=== PATIENT | female | born 1990 | race Caucasian/White ===

== ENCOUNTER 2020-11-18 16:48 | Outpatient (CLI) | payer BC, OTHER ==
[2020-11-18 20:47] LABS: BASOPHILS # (AUTO) 0.1 10^3/uL (0.0-0.1); BASOPHILS % (AUTO) 1.4 %; EOSINOPHILS # (AUTO) 0.3 10^3/uL (0.0-0.7); EOSINOPHILS % (AUTO) 4.4 %; HGB - HEMOGLOBIN 13.3 g/dL (12.0-16.0); LYMPHOCYTES # (AUTO) 1.8 10^3/uL (1.5-3.5); LYMPHOCYTES % (AUTO) 32.1 %; MEAN CORPUSCULAR HEMOGLOBIN 32.7 pg (27.0-31.0); MEAN PLATELET VOLUME 11.2 fL (7.9-10.8); MONOCYTES # (AUTO) 0.7 10^3/uL (0.0-1.0); MONOCYTES % (AUTO) 11.5 %; NEUTROPHILS # (AUTO) 2.9 10^3/uL (1.5-6.6); NEUTROPHILS % (AUTO) 50.2 %; PLT - PLATELET COUNT 273 10^3/uL (130-450); RED BLOOD COUNT 4.07 10^6/uL (4.20-5.40); RED CELL DISTRIBUTION WIDTH 12.2 % (12.0-15.0); WHITE BLOOD COUNT 5.7 x10^3/uL (4.8-10.8)
[2020-11-18 20:58] LABS: ALBUMIN/GLOBULIN RATIO 1.5 (1.0-2.2); BILIRUBIN,TOTAL 0.2 mg/dL (0.2-1.0); CALCIUM 9.1 mg/dL (8.5-10.3); CREATININE 0.8 mg/dL (0.4-1.0); TOTAL PROTEIN 6.7 g/dL (6.7-8.2)
== END 2020-11-18 23:59 | disposition home or self-care (01) ==
LOC: LAB.N 16:48
PROVIDERS: ATTEND Nurse Practitioner
DX: N93.8 Other specified abnormal uterine and vaginal bleeding (principal)
CPT/HCPCS: 36415; 80053; 85025

== ENCOUNTER 2022-02-17 09:33 | Outpatient (CLI) | payer OTHER ==
[2022-02-17 12:13] LABS: BASOPHILS # (AUTO) 0.1 10^3/uL (0.0-0.1); BASOPHILS % (AUTO) 1.2 %; EOSINOPHILS # (AUTO) 0.3 10^3/uL (0.0-0.7); EOSINOPHILS % (AUTO) 5.8 %; HCT - HEMATOCRIT 41.3 % (37.0-47.0); HGB - HEMOGLOBIN 13.8 g/dL (12.0-16.0); LYMPHOCYTES # (AUTO) 1.9 10^3/uL (1.5-3.5); LYMPHOCYTES % (AUTO) 38.1 %; MEAN CORPUSCULAR HEMOGLOBIN 33.5 pg (27.0-31.0); MEAN CORPUSCULAR HGB CONC 33.4 g/dL (32.0-36.0); MEAN CORPUSCULAR VOLUME 100.2 fL (81.0-99.0); MEAN PLATELET VOLUME 11.3 fL (7.9-10.8); MONOCYTES # (AUTO) 0.5 10^3/uL (0.0-1.0); MONOCYTES % (AUTO) 10.1 %; NEUTROPHILS # (AUTO) 2.2 10^3/uL (1.5-6.6); NEUTROPHILS % (AUTO) 44.6 %; PLT - PLATELET COUNT 241 10^3/uL (130-450); RED BLOOD COUNT 4.12 10^6/uL (4.20-5.40); WHITE BLOOD COUNT 4.9 x10^3/uL (4.8-10.8)
[2022-02-17 12:22] LABS: ESTIMATED AVERAGE GLUCOSE 97 mg/dL (70-100)
[2022-02-17 12:42] LABS: % IRON SATURATION 33 % (20-50); ALBUMIN 3.9 g/dL (3.2-5.5); ALBUMIN/GLOBULIN RATIO 1.3 (1.0-2.2); ALKALINE PHOSPHATASE 42 IU/L (42-121); ALT ALANINE AMINOTRANSFERASE 18 IU/L (10-60); AST ASPARTATE AMINOTRANSFERASE 22 IU/L (10-42); BILIRUBIN,TOTAL 0.7 mg/dL (0.2-1.0); BUN - BLOOD UREA NITROGEN 12 mg/dL (6-20); CARBON DIOXIDE - CO2 28 mmol/L (21-32); CHLORIDE 105 mmol/L (101-111); CHOL/HDL RATIO 2.4 (<4.4); CHOLESTEROL 160 mg/dL; CREATININE 0.8 mg/dL (0.4-1.0); GFR - MDRD 83 (>89); GLUCOSE 87 mg/dL (70-100); HDL CHOLESTEROL 66 mg/dL; IRON 153 ug/dL (28-170); LDL CHOLESTEROL,CALCULATED 83 mg/dL; LDL/HDL RATIO 1.3 (<4.4); SODIUM 141 mmol/L (135-145); THYROID STIMULATING HORMONE 1.04 uIU/mL (0.34-5.60); TOTAL IRON BINDING CAPACITY 470 ug/dL (250-450); TOTAL PROTEIN 6.9 g/dL (6.7-8.2); TRANSFERRIN 336 mg/dL (192-382); TRIGLYCERIDES 54 mg/dL; VLDL CHOLESTEROL 11 mg/dL
== END 2022-02-17 09:34 | disposition home or self-care (01) ==
LOC: LAB.N 09:33
PROVIDERS: ATTEND Physician Assistant
DX: R53.83 Other fatigue (principal); Z13.220 Encounter for screening for lipoid disorders; Z13.9 Encounter for screening, unspecified; Z13.1 Encounter for screening for diabetes mellitus; Z13.29 Encounter for screening for other suspected endocrine disorder
CPT/HCPCS: 36415; 80053; 80061; 82306; 82607; 82746; 83036; 83540; 83721; 84443; 84466; 85025

== ENCOUNTER 2022-12-01 13:00 | Outpatient (CLI) | payer OTHER ==
[2022-12-01 18:33] LABS: BASOPHILS # (AUTO) 0.1 10^3/uL (0.0-0.1); EOSINOPHILS # (AUTO) 0.3 10^3/uL (0.0-0.7); EOSINOPHILS % (AUTO) 5.2 %; HCT - HEMATOCRIT 43.4 % (37.0-47.0); HGB - HEMOGLOBIN 14.1 g/dL (12.0-16.0); LYMPHOCYTES # (AUTO) 1.7 10^3/uL (1.5-3.5); LYMPHOCYTES % (AUTO) 29.7 %; MEAN CORPUSCULAR HEMOGLOBIN 32.9 pg (27.0-31.0); MEAN CORPUSCULAR HGB CONC 32.5 g/dL (32.0-36.0); MEAN CORPUSCULAR VOLUME 101.2 fL (81.0-99.0); MEAN PLATELET VOLUME 10.8 fL (7.9-10.8); MONOCYTES # (AUTO) 0.5 10^3/uL (0.0-1.0); MONOCYTES % (AUTO) 8.7 %; NEUTROPHILS # (AUTO) 3.2 10^3/uL (1.5-6.6); NEUTROPHILS % (AUTO) 55.2 %; PLT - PLATELET COUNT 279 10^3/uL (130-450); RED BLOOD COUNT 4.29 10^6/uL (4.20-5.40); WHITE BLOOD COUNT 5.8 x10^3/uL (4.8-10.8)
[2022-12-01 19:02] LABS: FREE T3 3.06 pg/mL (2.5-3.9); THYROID STIMULATING HORMONE 1.27 uIU/mL (0.34-5.60)
[2022-12-01 19:06] LABS: ALBUMIN 3.9 g/dL (3.2-5.5); ALBUMIN/GLOBULIN RATIO 1.2 (1.0-2.2); BILIRUBIN,TOTAL 0.7 mg/dL (0.2-1.0); CREATININE 0.8 mg/dL (0.4-1.0); FREE T4 (FREE THYROXINE) 0.91 ng/dL (0.58-1.64); POTASSIUM 4.2 mmol/L (3.5-5.0); TOTAL PROTEIN 7.1 g/dL (6.7-8.2)
[2022-12-01 19:09] LABS: FERRITIN 23.7 ng/mL (11.0-306.8)
[2022-12-01 19:10] LABS: PROLACTIN 7.63 ng/mL
[2022-12-01 19:29] LABS: FOLLICLE STIMULATING HORMONE 2.51 mIU/mL
[2022-12-01 19:30] LABS: LUTEINIZING HORMONE 2.33 mIU/mL
[2022-12-01 20:46] LABS: HCG,QUALITATIVE BLOOD NEGATIVE
== END 2022-12-01 13:01 | disposition home or self-care (01) ==
LOC: LAB.N 13:00
PROVIDERS: ATTEND Physician Assistant
DX: L65.9 Nonscarring hair loss, unspecified (principal); R53.83 Other fatigue; N91.2 Amenorrhea, unspecified; R51.9 Headache, unspecified
CPT/HCPCS: 36415; 80053; 82728; 83001; 83002; 83540; 84146; 84439; 84443; 84466; 84481; 84703; 85025